=== PATIENT | female | born 1950 | race Caucasian/White ===

== ENCOUNTER 2020-03-16 05:56 | Day surgery (SDC) | payer MEDICARE ==
[2020-03-15 09:12] LABS: BASOPHILS % (AUTO) 0.6 % (0-1); EOSINOPHILS # (AUTO) 0.1 X10'3 (0-0.9); EOSINOPHILS % (AUTO) 1.6 % (0-6); HEMATOCRIT 35.6 % (35.0-45.0); HEMOGLOBIN 12.1 g/dl (12.0-16.0); LYMPHOCYTES # (AUTO) 1.2 X10'3 (1.1-4.8); LYMPHOCYTES % (AUTO) 18.4 % (21-51); MEAN CORPUSCULAR HGB CONC 33.9 g/dL (33.0-36.5); MEAN CORPUSCULAR VOLUME 94.6 FL (78-98); MEAN PLATELET VOLUME 8.9 FL (7.4-10.4); MONOCYTES # (AUTO) 0.5 X10'3 (0-0.9); MONOCYTES % (AUTO) 7.4 % (2-12); NEUTROPHILS # (AUTO) 4.8 X10'3 (1.8-7.7); PLATELET COUNT 288 X10'3 (140-440); RED BLOOD COUNT 3.77 X10'6 (4.20-5.60); RED CELL DISTRIBUTION WIDTH 13.2 % (11.5-14.5); WHITE BLOOD COUNT 6.6 X10'3 (4.5-11.0)
[2020-03-15 09:17] LABS: ALBUMIN 3.5 G/DL (3.4-5.0); ANION GAP 7 (8-16); BLOOD UREA NITROGEN 26 MG/DL (7-18); BUN/CREATININE RATIO 29.9 (6.6-38.0); CHLORIDE 103 MMOL/L (99-107); CREATININE 0.87 MG/DL (0.40-0.90); GLUCOSE 105 MG/DL (70-104); PARTIAL THROMBOPLASTIN TIME 26 SECONDS (22-32); POTASSIUM 4.3 MMOL/L (3.5-5.1); SODIUM 139 MMOL/L (135-145); TOTAL CARBON DIOXIDE 28.9 MMOL/L (24-32); eGFR 64 ML/MIN
[~2020-03-16] VITALS: Ht 165.1 cm; Wt 102.0 kg
[2020-03-16] VITALS (11 sets, daily range): BP systolic 120–151; BP diastolic 49–78
[2020-03-16] MEDS ORDERED: LORazepam 0.5 MG tablet PO PRN (06:20)
[2020-03-16] MEDS ORDERED: diphenhydrAMINE 25mg capsule PO PRN (06:20)
[2020-03-16] MEDS ORDERED: normal saline 1,000 ML IV SCH (06:20)
[2020-03-16] MEDS ORDERED: LIDOcaine/PRILOcaine 5gm cream TP ONE (06:35)
[2020-03-16] MEDS ORDERED: CARV3.122 PO (06:42)
[2020-03-16] MEDS ORDERED: FURO40TA4 PO (06:42)
[2020-03-16] MEDS ORDERED: MONT10TA26 PO (06:42)
[2020-03-16] MEDS ORDERED: TELM40TA2 PO (06:42)
[2020-03-16] MEDS ORDERED: AMLO5TAB16 PO (06:42)
[2020-03-16] MEDS ORDERED: st johns wort (06:57)
[2020-03-16] MEDS ORDERED: IBUP-2697 (06:57)
[2020-03-16] MEDS ORDERED: BIOT10005 (06:57)
[2020-03-16] MEDS ORDERED: ACET-1084 PO (06:57)
[2020-03-16] MEDS ORDERED: vitamin b12 (06:57)
[2020-03-16] MEDS ORDERED: vitamin d3 (06:57)
[2020-03-16] MEDS ORDERED: fentaNYL/PF 50MCG/1 ML 2ML syringe ONE (07:17)
[2020-03-16] MEDS ORDERED: verapamil 2.5 mg/ml inj IV ONE (07:17)
[2020-03-16] MEDS ORDERED: nitroGLYCERIN-Tridil 50MG/D5W 250 ML IV ONE (07:17)
[2020-03-16] MEDS ORDERED: midazolam 2 mg/2 ml injection ONE (07:17)
[2020-03-16] MEDS ORDERED: iohexol 350MG/ML 100ml bottle IV ONE (07:18)
[2020-03-16] MEDS ORDERED: iohexol 350 MG/ML 50ML vial IV ONE (07:18)
[2020-03-16] MEDS ORDERED: LIDOcaine 1% (10mg/ml)w/preservative injection 20ml MDV ONE (07:18)
[2020-03-16] MEDS ORDERED: heparin 1,000unit/ml 10ml vial 10 ML ONE (07:18)
[2020-03-16 09:16] LABS: ISTAT HGB ART 11.9 g/dl (12.0-16.0); ISTAT Hct ART 35 %PCV (35-48); ISTAT O2 SATURATION ARTERIAL 94 % (95-98); ISTAT SOURCE ART
--- NOTE | 2020-03-16 10:11 | NUR ---
Spoke with patient's family memberOneyda. Discussed pts medication reconciliation changes and new medication ordered. Also discussed pts discharge information and answered family members questions.
== END 2020-03-16 13:50 | disposition home or self-care (01) ==
LOC: SSTAY O 05:56
PROVIDERS: ATTEND Internal Medicine Cardiovascular Disease
DX: R06.02 Shortness of breath (principal); I25.10 Atherosclerotic heart disease of native coronary artery without angina pectoris; I11.0 Hypertensive heart disease with heart failure; I50.43 Acute on chronic combined systolic (congestive) and diastolic (congestive) heart failure; E78.49 Other hyperlipidemia; G47.33 Obstructive sleep apnea (adult) (pediatric); F32.9 Major depressive disorder, single episode, unspecified; J45.909 Unspecified asthma, uncomplicated; Z79.899 Other long term (current) drug therapy; Z90.710 Acquired absence of both cervix and uterus; Z98.890 Other specified postprocedural states; Z83.3 Family history of diabetes mellitus; Z80.9 Family history of malignant neoplasm, unspecified
CPT/HCPCS: 36415; 80048; 82803; 85014; 85025; 85610; 85730; 93005; 93460; 99152; 99153; C1769; C1894; J1644; J2001; J2250; J3010; J7030; Q0163; Q9967; A4620; A5120; C1751; J3490

== ENCOUNTER 2021-02-01 06:17 | Day surgery (SDC) | payer MEDICARE ==
[2021-01-31 10:16] LABS: BASOPHILS % (AUTO) 0.4 % (0-1); EOSINOPHILS # (AUTO) 0.1 X10'3 (0-0.9); EOSINOPHILS % (AUTO) 2.2 % (0-6); HEMATOCRIT 31.1 % (35.0-45.0); HEMOGLOBIN 10.2 g/dl (12.0-16.0); LYMPHOCYTES % (AUTO) 16.3 % (21-51); MEAN CORPUSCULAR HGB CONC 32.9 g/dL (33.0-36.5); MEAN CORPUSCULAR VOLUME 97.3 FL (78-98); MEAN PLATELET VOLUME 8.5 FL (7.4-10.4); MONOCYTES # (AUTO) 0.5 X10'3 (0-0.9); MONOCYTES % (AUTO) 7.8 % (2-12); NEUTROPHILS # (AUTO) 4.4 X10'3 (1.8-7.7); NEUTROPHILS % (AUTO) 73.3 % (42-75); PLATELET COUNT 304 X10'3 (140-440); RED BLOOD COUNT 3.19 X10'6 (4.20-5.60)
[2021-01-31 10:27] LABS: ALBUMIN 2.7 G/DL (3.4-5.0); ANION GAP 10 (8-16); BLOOD UREA NITROGEN 30 MG/DL (7-18); BUN/CREATININE RATIO 27.5 (6.6-38.0); CHLORIDE 109 MMOL/L (99-107); CREATININE 1.09 MG/DL (0.40-0.90); GLUCOSE 104 MG/DL (70-104); POTASSIUM 4.8 MMOL/L (3.5-5.1); SODIUM 141 MMOL/L (135-145); TOTAL CARBON DIOXIDE 22.5 MMOL/L (24-32); eGFR 49 ML/MIN
[2021-02-01] VITALS (13 sets, daily range): BP systolic 128–167; BP diastolic 57–86
[~2021-02-01] VITALS: Ht 165.1 cm; Wt 102.7 kg
[~2021-02-01 06:17] MED LIST: ACET-1084 PO; AMLO5TAB16 PO; BIOT10005; CARV3.122 PO; FURO40TA4 PO; IBUP-2697; MONT10TA32 PO; TELM40TA2 PO; st johns wort; vitamin b12; vitamin d3
[2021-02-01] MEDS ORDERED: cefazolin/dext.iso 2gm/100ml 100 ML IV ONE (06:35)
[2021-02-01] MEDS ORDERED: SPIR25TA5 PO (06:53)
[2021-02-01] MEDS ORDERED: BEMP180T PO (06:53)
[2021-02-01] MEDS ORDERED: TIOT4MIS3 (06:54)
[2021-02-01] MEDS ORDERED: ceFAZolin 1000mg inj ONE (07:41)
[2021-02-01] MEDS ORDERED: fentaNYL/PF 50MCG/1 ML 2ML syringe ONE ×2 (07:41→09:52)
[2021-02-01] MEDS ORDERED: LIDOcaine 1% W/epiNEPHrine 1:100,000 20ml vial ONE (07:41)
[2021-02-01] MEDS ORDERED: midazolam 1 mg/ML 2ml injection ONE ×2 (07:41→09:09)
[2021-02-01] MEDS ORDERED: iohexol 350 MG/ML 50ML vial IV ONE (08:20)
[2021-02-01] MEDS ORDERED: amiodarone 50MG/ML inj IV ONE (09:57)
[2021-02-01] MEDS ORDERED: HYDROcodone/acetaminophen 5mg/325mg tablet PO PRN (12:10)
[2021-02-01] MEDS ORDERED: vancomycin/NS 1 GM ADD-VANTAGE 250 ML X 1 DOSE IV ONE (12:10)
[2021-02-01] MEDS: HYDROcodone/acetaminophen 10/325mg tab PO PRN ×2 (13:48→17:33)
== END 2021-02-01 18:05 | disposition home or self-care (01) ==
LOC: SSTAY O 06:17
PROVIDERS: ATTEND Internal Medicine Cardiovascular Disease
DX: I42.0 Dilated cardiomyopathy (principal); I44.7 Left bundle-branch block, unspecified; I25.10 Atherosclerotic heart disease of native coronary artery without angina pectoris; I11.0 Hypertensive heart disease with heart failure; I50.42 Chronic combined systolic (congestive) and diastolic (congestive) heart failure; E78.5 Hyperlipidemia, unspecified; I27.20 Pulmonary hypertension, unspecified; Z79.899 Other long term (current) drug therapy
CPT/HCPCS: 33225; 33249; 36415; 71046; 80048; 85025; 93005; 99152; 99153; C1769; C1882; C1887; C1894; C1895; C1900; J0690; J2250; J3010; J3370; Q9967; A4565; A4620; A6258; A6449

== ENCOUNTER 2022-02-06 09:25 | Emergency (ER) | payer BC ==
[~2022-02-06] VITALS: Ht 165.1 cm; Wt 100.0 kg
[~2022-02-06 09:25] MED LIST changes: -ACET-1084 PO; -AMLO5TAB16 PO; +CELE100C98 PO; -IBUP-2697; +MONT-40 PO; -MONT10TA32 PO; +SPIR25TA5 PO
[2022-02-06] MEDS ORDERED: aspirin 81mg tab.chew PO ONE (10:00)
[2022-02-06 10:12] LABS: BASOPHILS % (AUTO) 0.5 % (0-1); EOSINOPHILS # (AUTO) 0.1 X10'3 (0-0.9); EOSINOPHILS % (AUTO) 1.8 % (0-6); HEMOGLOBIN 9.7 g/dl (12.0-16.0); LYMPHOCYTES # (AUTO) 0.9 X10'3 (1.1-4.8); LYMPHOCYTES % (AUTO) 13.2 % (21-51); MEAN CORPUSCULAR HEMOGLOBIN 31.9 PG (27.0-31.0); MEAN CORPUSCULAR HGB CONC 33.3 g/dL (33.0-36.5); MEAN CORPUSCULAR VOLUME 95.8 FL (78-98); MEAN PLATELET VOLUME 8.9 FL (7.4-10.4); MONOCYTES # (AUTO) 0.4 X10'3 (0-0.9); MONOCYTES % (AUTO) 6.4 % (2-12); NEUTROPHILS # (AUTO) 5.4 X10'3 (1.8-7.7); NEUTROPHILS % (AUTO) 78.1 % (42-75); PLATELET COUNT 288 X10'3 (140-440); RED BLOOD COUNT 3.03 X10'6 (4.20-5.60); WHITE BLOOD COUNT 6.9 X10'3 (4.5-11.0)
[2022-02-06] MEDS ORDERED: ipratropium/albuterol 3ml nebule NEB ONE (10:20)
[2022-02-06 10:27] LABS: ALANINE AMINOTRANSFERASE 32 U/L (12-78); ALBUMIN 3.7 G/DL (3.4-5.0); ALKALINE PHOSPHATASE 74 IU/L (46-116); ANION GAP 9 (8-16); ASPARTATE AMINO TRANSFERASE 15 U/L (10-37); BILIRUBIN,TOTAL 0.2 MG/DL (0.1-1.0); BLOOD UREA NITROGEN 38 MG/DL (7-18); BUN/CREATININE RATIO 34.5 (6.6-38.0); CHLORIDE 107 MMOL/L (99-107); GLUCOSE 101 MG/DL (70-104); POTASSIUM 4.7 MMOL/L (3.5-5.1); SODIUM 139 MMOL/L (135-145); TOTAL CARBON DIOXIDE 22.7 MMOL/L (24-32); TOTAL PROTEIN 7.3 G/DL (6.4-8.2); eGFR 49 ML/MIN
[2022-02-06 10:35] LABS: MAGNESIUM 2.1 MG/DL (1.5-2.4)
--- NOTE | 2022-02-06 10:38 | NUR ---
rt at bedside
--- NOTE | 2022-02-06 10:38 | NUR ---
3 tabs of chewable aspirin given (243mg) instead of ordered 4 as pt takes a baby aspirin each morning (81mg) and pt took one this morning. edmd landryjavy aware and agrees to this as final dosage combined is the same
[2022-02-06] MEDS ORDERED: predniSONE 20 mg tablet PO ONE (10:55)
[2022-02-06 11:33] VITALS: BP 143/67
== END 2022-02-06 11:46 | disposition home or self-care (01) ==
LOC: ER 09:25
DX: R06.02 Shortness of breath (principal); R05.9 Cough, unspecified; Z79.899 Other long term (current) drug therapy
CPT/HCPCS: 36415; 71045; 80053; 83735; 83880; 84484; 85025; 93005; 94640; 99285; J7512; 94760

== ENCOUNTER 2023-08-23 05:38 | Day surgery (SDC) | payer BC ==
[2023-08-22 15:59] LABS: BILIRUBIN,URINE NEGATIVE (Neg); CLARITY,URINE TURBID (Clear); COLOR,URINE YELLOW (Yellow); GLUCOSE, URINE NEGATIVE (Neg); KETONES,URINE NEGATIVE (Neg); LEUKOCYTE ESTERASE ,URINE MODERATE (Neg); NITRITES, URINE POSITIVE (Neg); OCCULT BLOOD,URINE SMALL (Neg); PH,URINE 5.5 (4.8-8.0); PROTEIN,URINE NEGATIVE (Neg); UROBILINOGEN,URINE 0.2 E.U/dL (0.2-1.0)
[2023-08-22 16:01] LABS: UA COLLECTION TYPE CLN CATCH MIDSTREAM
[2023-08-22 16:06] LABS: BASOPHILS % (AUTO) 0.6 % (0-1); EOSINOPHILS # (AUTO) 0.3 X10'3 (0-0.9); EOSINOPHILS % (AUTO) 4.3 % (0-6); LYMPHOCYTES # (AUTO) 1.5 X10'3 (1.1-4.8); LYMPHOCYTES % (AUTO) 19.1 % (21-51); MEAN CORPUSCULAR HEMOGLOBIN 32.3 PG (27.0-31.0); MEAN CORPUSCULAR HGB CONC 33.6 g/dL (33.0-36.5); MEAN CORPUSCULAR VOLUME 96.2 FL (78-98); MEAN PLATELET VOLUME 8.8 FL (7.4-10.4); MONOCYTES # (AUTO) 0.7 X10'3 (0-0.9); MONOCYTES % (AUTO) 9.3 % (2-12); NEUTROPHILS # (AUTO) 5.1 X10'3 (1.8-7.7); NEUTROPHILS % (AUTO) 66.7 % (42-75); PRE OP HEMATOCRIT 34.9 % (35.0-45.0); PRE OP HEMOGLOBIN 11.7 g/dL (12.0-16.0); PRE OP PLATELET COUNT 298 X10'3 (140-440); PRE OP WHITE BLOOD COUNT 7.7 10'3 (4.8-10.8); RED BLOOD COUNT 3.63 X10'6 (4.20-5.60); RED CELL DISTRIBUTION WIDTH 13.1 % (11.5-14.5)
[2023-08-22 16:14] LABS: PRE OP PROTIME 10.9 SECONDS (9.0-12.0)
[2023-08-22 16:19] LABS: ALBUMIN 3.7 G/DL (3.4-5.0); ALBUMIN/GLOBULIN RATIO 0.9 (1.1-1.5); ALKALINE PHOSPHATASE 82 IU/L (46-116); BLOOD UREA NITROGEN 20 MG/DL (7-18); BUN/CREATININE RATIO 23.5 (10.0-20.0); CALCIUM 9.5 MG/DL (8.5-10.1); CHLORIDE 103 MMOL/L (99-107); CREATININE 0.85 MG/DL (0.40-0.90); PRE OP ALT 23 U/L (30-65); PRE OP ANION GAP 8 (8-16); PRE OP AST 17 U/L (10-37); PRE OP BILIRUB, TOTAL 0.3 MG/DL (0.0-1.0); PRE OP GLUCOSE 102 MG/DL (70-104); PRE OP POTASSIUM 3.5 MMOL/L (3.4-5.1); PRE OP SODIUM 139 MMOL/L (135-145); TOTAL CARBON DIOXIDE 27.7 MMOL/L (24-32); TOTAL PROTEIN 7.7 G/DL (6.4-8.2); eGFR 65 ML/MIN
[2023-08-22 16:27] LABS: WBC,URINE TNTC /HPF (0-4)
[2023-08-22 16:28] LABS: RBC,URINE 0-2 /HPF (0-2)
[2023-08-22 16:29] LABS: TRANSITIONAL EPI CELLS,URINE FEW /HPF
[2023-08-22 16:35] LABS: AMORPHOUS URATES 2+; SQUAMOUS EPITHELIAL CELL,UR MANY /LPF (FEW)
[2023-08-22 16:39] LABS: BACTERIA,URINE 3+ /HPF (Neg); WBC CLUMPS,URINE MANY /HPF (NEGATIVE)
[2023-08-22 16:40] LABS: MUCUS STRANDS FEW /LPF (Neg)
[2023-08-23] VITALS (9 sets, daily range): BP systolic 117–156; BP diastolic 50–82; PULSE 66–73; RESP 12–16; TEMP 97.5; O2SAT 94–98
[~2023-08-23] VITALS: Ht 165.1 cm; Wt 102.4 kg
[~2023-08-23 05:38] MED LIST changes: +ASPI81TA52 PO; +ATOR10TA70 PO; -BIOT10005; +BIOT10005 PO; -CELE100C98 PO; +CHOL400T57 PO; +DICL100G59 TOP; +DOCUMENT DATE & TIME OF BETA-BLOCKER PO ONE; +FLUT1AER INH; +HYDR-4069 PO; +METF-900 PO; +ONE A DAY PO; +TIOT18CA3 INH; +[UNRECOGNIZED DRUG - OTHER] PO; +cefazolin 2gm/D5W 100mL 100 ML IV ONE; +famotidine 20mg tablet PO ONE; +ringers solution, lacted 1,000 ML IV SCH; -st johns wort; -vitamin b12; -vitamin d3
[2023-08-23] MEDS ORDERED: BUPIVAcaine/PF 2.5mg/ml (0.25%) 10ml vial ONE (07:05)
[2023-08-23] MEDS ORDERED: fentaNYL/PF 50MCG/1 ML 2ML syringe ONE (07:20)
[2023-08-23] MEDS ORDERED: midazolam 1 mg/ML 2ml injection ONE (07:20)
[2023-08-23] MEDS ORDERED: LIDOcaine 2% (20mg/ml) 5ml vial ONE (07:21)
[2023-08-23] MEDS ORDERED: dexamethasone sod phosphate 4mg/ml inj. ONE (07:21)
[2023-08-23] MEDS ORDERED: ondansetron/PF 4mg/2ml inj ONE (07:21)
[2023-08-23] MEDS ORDERED: propofol inj 20 ML IV ONE (07:21)
[2023-08-23] MEDS ORDERED: morphine 2 MG/ML inj. syringe IV PRN (07:45)
[2023-08-23] MEDS ORDERED: ringers solution, lacted 1,000 ML IV SCH (07:45)
[2023-08-23] MEDS ORDERED: ondansetron/PF 4mg/2ml inj IV PRN (07:45)
[2023-08-23] MEDS ORDERED: hydrALAZINE 20mg/ml inj. IV PRN (07:45)
[2023-08-23] MEDS ORDERED: enalaprilat dihydrate 2.5mg/2ml vial IV PRN (07:45)
[2023-08-23] MEDS ORDERED: morphine 4 MG/ML inj SYRINge IV PRN (07:45)
[2023-08-23] MEDS ORDERED: fentaNYL/PF 50MCG/1 ML 2ML syringe IV PRN ×2 (07:45)
== END 2023-08-23 08:57 | disposition home or self-care (01) ==
LOC: PAS 05:38
PROVIDERS: ATTEND Specialist
DX: G56.01 Carpal tunnel syndrome, right upper limb (principal); I10 Essential (primary) hypertension; E78.5 Hyperlipidemia, unspecified; J44.9 Chronic obstructive pulmonary disease, unspecified; E11.9 Type 2 diabetes mellitus without complications; E66.9 Obesity, unspecified; Z68.37 Body mass index [BMI] 37.0-37.9, adult; Z95.0 Presence of cardiac pacemaker; Z90.710 Acquired absence of both cervix and uterus; Z79.84 Long term (current) use of oral hypoglycemic drugs; Z79.82 Long term (current) use of aspirin; Z79.01 Long term (current) use of anticoagulants; Z79.899 Other long term (current) drug therapy
CPT/HCPCS: 36415; 64721; 80053; 81001; 82948; 85025; 85610; 85730; A6222; J0690; J1100; J2250; J2405; J2704; J3010; J3490; J7030; J7120; Z7506; Z7512; A6449; A7000

== ENCOUNTER 2024-02-26 05:40 | Day surgery (SDC) | payer BC ==
[2024-02-20 11:32] LABS: BASOPHILS % (AUTO) 0.4 % (0-1); EOSINOPHILS # (AUTO) 0.1 X10'3 (0-0.9); EOSINOPHILS % (AUTO) 1.2 % (0-6); LYMPHOCYTES # (AUTO) 1.3 X10'3 (1.1-4.8); LYMPHOCYTES % (AUTO) 17.2 % (21-51); MEAN CORPUSCULAR HGB CONC 33.6 g/dL (33.0-36.5); MEAN CORPUSCULAR VOLUME 95.4 FL (78-98); MEAN PLATELET VOLUME 8.8 FL (7.4-10.4); MONOCYTES # (AUTO) 0.5 X10'3 (0-0.9); MONOCYTES % (AUTO) 6.2 % (2-12); NEUTROPHILS # (AUTO) 5.9 X10'3 (1.8-7.7); PRE OP HEMATOCRIT 35.7 % (35.0-45.0); PRE OP PLATELET COUNT 272 X10'3 (140-440); PRE OP WHITE BLOOD COUNT 7.8 10'3 (4.8-10.8); RED BLOOD COUNT 3.74 X10'6 (4.20-5.60)
[2024-02-20 11:49] LABS: ALBUMIN 3.7 G/DL (3.4-5.0); ALKALINE PHOSPHATASE 69 IU/L (46-116); BLOOD UREA NITROGEN 28 MG/DL (7-18); BUN/CREATININE RATIO 26.2 (10.0-20.0); CALCIUM 9.2 MG/DL (8.5-10.1); CHLORIDE 104 MMOL/L (99-107); CREATININE 1.07 MG/DL (0.40-0.90); PRE OP ALT 21 U/L (30-65); PRE OP ANION GAP 9 (8-16); PRE OP AST 14 U/L (10-37); PRE OP BILIRUB, TOTAL 0.4 MG/DL (0.0-1.0); PRE OP GLUCOSE 118 MG/DL (70-104); PRE OP POTASSIUM 4.2 MMOL/L (3.4-5.1); PRE OP SODIUM 140 MMOL/L (135-145); TOTAL CARBON DIOXIDE 27.1 MMOL/L (24-32); TOTAL PROTEIN 7.4 G/DL (6.4-8.2); eGFR 50 ML/MIN
[2024-02-26] VITALS (8 sets, daily range): BP systolic 128–158; BP diastolic 62–69; PULSE 69–80; RESP 14–16; TEMP 98.2; O2SAT 93–99
[~2024-02-26] VITALS: Ht 165.1 cm; Wt 99.2 kg
[~2024-02-26 05:40] MED LIST changes: -DOCUMENT DATE & TIME OF BETA-BLOCKER PO ONE; -HYDR-4069 PO; +HYDR25TA90 PO; +ST JOHNS WORT; -cefazolin 2gm/D5W 100mL 100 ML IV ONE; -famotidine 20mg tablet PO ONE; -ringers solution, lacted 1,000 ML IV SCH
[2024-02-26] MEDS: cefazolin 2gm/D5W 100mL 100 ML IV ONE (06:19)
[2024-02-26] MEDS: DOCUMENT DATE & TIME OF BETA-BLOCKER PO ONE (06:28)
[2024-02-26] MEDS: ringers solution, lacted 1,000 ML IV SCH (06:29)
[2024-02-26] MEDS: famotidine 20mg tablet PO ONE (06:29)
[2024-02-26] MEDS ORDERED: BUPIVAcaine 2.5mg/ml inj 50ml vial (contains preservative) ONE (07:04)
[2024-02-26] MEDS ORDERED: sevoflurane 250ml liquid IH ONE (07:10)
[2024-02-26] MEDS ORDERED: midazolam 1 mg/ML 2ml injection ONE (07:15)
[2024-02-26] MEDS ORDERED: fentaNYL/PF 50MCG/1 ML 2ML syringe ONE (07:15)
[2024-02-26] MEDS ORDERED: LIDOcaine 2% (20mg/ml) 5ml vial ONE (07:24)
[2024-02-26] MEDS ORDERED: propofol inj 20 ML IV ONE (07:24)
[2024-02-26] MEDS ORDERED: ondansetron/PF 4mg/2ml inj ONE (07:26)
[2024-02-26] MEDS ORDERED: dexamethasone sod phosphate 4mg/ml inj. ONE (07:27)
[2024-02-26] MEDS: BUPIVAcaine 2.5mg/ml inj 50ml vial (contains preservative) SQ ONE (07:43)
[2024-02-26] MEDS ORDERED: acetaminophen 1,000mg/100ml IV 100 ML IV ONE (07:50)
[2024-02-26] MEDS ORDERED: labetalol 20mg/4ml (5mg/ml) syringe IV PRN (09:25)
[2024-02-26] MEDS ORDERED: meperidine/PF 25mg/ml syringe IV PRN ×3 (09:25)
[2024-02-26] MEDS ORDERED: ringers solution, lacted 1,000 ML IV SCH (09:25)
[2024-02-26] MEDS ORDERED: morphine 4 MG/ML inj SYRINge IV PRN (09:25)
[2024-02-26] MEDS ORDERED: proCHLORperazine 10 MG/2 ml inj IV PRN (09:25)
[2024-02-26] MEDS ORDERED: morphine 2 MG/ML inj. syringe IV PRN (09:25)
[2024-02-26] MEDS ORDERED: enalaprilat dihydrate 2.5mg/2ml vial IV PRN (09:25)
[2024-02-26] MEDS ORDERED: ondansetron/PF 4mg/2ml inj IV PRN (09:25)
== END 2024-02-26 09:24 | disposition home or self-care (01) ==
LOC: PAS 05:40
PROVIDERS: ATTEND Specialist
DX: G56.02 Carpal tunnel syndrome, left upper limb (principal); I44.7 Left bundle-branch block, unspecified; I10 Essential (primary) hypertension; E66.01 Morbid (severe) obesity due to excess calories; E11.9 Type 2 diabetes mellitus without complications; E78.5 Hyperlipidemia, unspecified; J45.909 Unspecified asthma, uncomplicated; Z86.73 Personal history of transient ischemic attack (TIA), and cerebral infarction without residual deficits; Z79.82 Long term (current) use of aspirin; Z79.899 Other long term (current) drug therapy; Z90.710 Acquired absence of both cervix and uterus; Z95.0 Presence of cardiac pacemaker; Z98.890 Other specified postprocedural states; Z68.36 Body mass index [BMI] 36.0-36.9, adult
CPT/HCPCS: 36415; 64721; 71045; 80053; 82948; 85025; 93005; A6222; J0131; J0690; J1100; J2250; J2405; J2704; J3010; J3490; J7030; J7120; Z7506; Z7512; A4215; A4565; A6449; A7000